=== PATIENT | male | born 1990 | race Two or more races ===

== ENCOUNTER 2016-09-16 08:57 | Emergency (ER) | payer MEDICAID, OTHER, SELFPAY ==
[2016-09-16 09:16] VITALS: BP 126/63
--- NOTE | 2016-09-16 09:39 | EDM.PDOC ---
ED HPI LOWER BACK PAIN/INJURY - General Chief Complaint: Back Pain or Injury Stated Complaint: HURT BACK Time Seen by Provider: 09/16/16 09:32 Source: Reports: Patient History Limitations: Reports: No limitations - History of Present Illness INITIAL COMMENTS - FREE TEXT/NARRATIVE: History of present illness: [This is a 26-year-old male that slipped and fell down the stairs yesterday basically been going down the stairs on his buttocks and comes in now with low back pain he has no pain we down his legs he has no prior injuries he did not go to work last night because of the pain and does not feel like he can work tonight he has used one 200 mg Advil for pain and nothing else.] Review of systems: As per history of present illness and below otherwise all systems reviewed and negative. Past medical history: As per history of present illness and as reviewed below otherwise noncontributory. Surgical history: As per history of present illness and as reviewed below otherwise noncontributory. Social history: No reported history of drug or alcohol abuse. Family history: As per history of present illness and as reviewed below otherwise noncontributory. Physical exam: HEENT: Atraumatic, normocephalic, pupils reactive, negative for conjunctival pallor or scleral icterus, mucous membranes moist, throat clear, neck supple, nontender, trachea midline. Lungs: Clear to auscultation, breath sounds equal bilaterally, chest nontender. Heart: S1S2, regular, negative for clicks, rubs, or JVD. Abdomen: Soft, nondistended, nontender. Negative for masses or hepatosplenomegaly. Negative for costovertebral tenderness. Pelvis: Stable nontender. Genitourinary: Deferred. Rectal: Deferred. Back: He does have some spasm paraspinally in the lumbar region on palpation it is tender straight leg raising is negative his DTRs are active he is able to sit and stand without difficulty. He has no midline tenderness Extremities: Atraumatic, negative for cords or calf pain. Neurovascular unremarkable. Neuro: Awake, alert, oriented. Cranial nerves II through XII unremarkable. Cerebellum unremarkable. Motor and sensory unremarkable throughout. Exam nonfocal. Diagnostics: [] Therapeutics: [] Impression: [Acute low back pain with spasm] Plan: [Will provide him with Flexeril 10 mg 1 by mouth 3 times a day when necessary # 30 with one refill and give him a work excuse and have him return to work tomorrow evening] Definitive disposition and diagnosis as appropriate pending reevaluation and review of above. 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 bilateral knee pain that comes and goes Psychiatric History: Reports: Depression, Suicidal ideation Social & Family History - Tobacco Use Smoking Status *Q: Current Every Day Smoker Years of Tobacco use: 15 Packs/Tins Daily: 0.5 - Caffeine Use Caffeine Use: Reports: Energy drinks Caffeine Use Comment: quit 2 months ago - Alcohol Use Days Per Week of Alcohol Use: 3 Number of Drinks Per Day: 3 Total Drinks Per Week: 9 - Recreational Drug Use Recreational Drug Use: Yes Recreational Drug Type: Reports: Cocaine ED ROS GENERAL - Review of Systems Review Of Systems: ROS reveals no pertinent complaints other than HPI. ED EXAM,LOWER BACK PAIN/INJURY - Physical Exam Exam: See Below Course - Vital Signs Last Recorded V/S: Last Vital Signs Temp 36.7 C 09/16/16 09:13 Pulse 77 09/16/16 09:13 Resp 14 09/16/16 09:13 BP 126/63 09/16/16 09:13 Pulse Ox 97 09/16/16 09:13 Departure - Departure Time of Disposition: 09:39 Disposition: Home, Self-Care 01 Condition: good Clinical Impression: Low back pain Qualifiers: Chronicity: acute Back pain laterality: unspecified Sciatica presence: unspecified whether sciatica present Qualified Code(s): M54.5 - Low back pain Forms: ED Department Discharge
== END 2016-09-16 10:02 | disposition home or self-care (01) ==
LOC: JP.ED 08:57
DX: M54.5 Low back pain (principal); F17.210 Nicotine dependence, cigarettes, uncomplicated; W10.9XXA Fall (on) (from) unspecified stairs and steps, initial encounter
CPT/HCPCS: 99283

== ENCOUNTER 2017-01-20 14:48 | Emergency (ER) | payer OTHER, SELFPAY ==
[2017-01-20 16:51] VITALS: BP 132/77
--- NOTE | 2017-01-20 17:21 | EDM.PDOC ---
ED HPI GENERAL MEDICAL PROBLEM - General Chief Complaint: General Stated Complaint: ELBOWS HURTING/COULDN'T WORK YESTERDAY FROM PAIN Time Seen by Provider: 01/20/17 17:15 Source of Information: Reports: Patient History Limitations: Reports: No Limitations - History of Present Illness INITIAL COMMENTS - FREE TEXT/NARRATIVE: Sheldon is an otherwise healthy 26 year old male who presents to the ED today with c/o bilateral elbow and knee pain. Patient reports that pain comes and goes and has been ongoing for the last several weeks. Patient was seen in clinic and was told to take Tylenol and Ibuprofen. Patient denies any fever/headache or trauma, did not go to work last night secondary to the pain. He does report that he does a lot of lifting at work which makes pain worse. 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 bilateral knee pain that comes and goes Psychiatric History: Reports: Depression, Suicidal Ideation Social & Family History - Tobacco Use Smoking Status *Q: Current Every Day Smoker Years of Tobacco use: 1 Packs/Tins Daily: 0.5 - Caffeine Use Caffeine Use: Reports: Energy Drinks Caffeine Use Comment: quit 2 months ago - Alcohol Use Days Per Week of Alcohol Use: 3 Number of Drinks Per Day: 3 Total Drinks Per Week: 9 - Recreational Drug Use Recreational Drug Use: Yes Recreational Drug Type: Reports: Cocaine ED ROS GENERAL - Review of Systems Review Of Systems: ROS reveals no pertinent complaints other than HPI. ED EXAM, GENERAL - Physical Exam Exam: See Below Exam Limited By: No Limitations General Appearance: Alert, WD/WN, No Apparent Distress Head: Atraumatic Respiratory/Chest: No Respiratory Distress, Lungs Clear Cardiovascular: Normal Peripheral Pulses, No Murmur, Bradycardia Back Exam: Normal Inspection Extremities: Normal Inspection, Normal Range of Motion, Normal Capillary Refill Neurological: Alert, Oriented Psychiatric: Normal Affect, Normal Mood Course - Vital Signs Last Recorded V/S: Last Vital Signs Temp 35.6 C 01/20/17 17:09 Pulse 56 L 01/20/17 17:09 Resp 16 01/20/17 17:09 BP 132/77 01/20/17 17:09 Pulse Ox 99 01/20/17 17:09 Sheldon is an otherwise healthy 26 year old male who presents to the ED today with c/o bilateral elbow and knee pain for the last several weeks. Please refer to HPI and focused exam. Patient on exam is well hydrated, he is non-toxic appearing, exam is rather unremarkable, he is minimally tender, there is no redness or swelling to indicate gout, infection or bursitis. Likely inflammatory with possible arthritic component vs. tendon involvement. Patient requesting blood work, this was done here including CBC, CMP, CRP and ESR, these are all relatively unremarkable. I instructed patient to take scheduled ibuprofen for the next 5 days to see if this is helpful. He should follow up with PCP next week. Reasons to return to return to the ED discussed, patient agreeable and discharged in stable condition. - Orders/Labs/Meds Labs: Laboratory Tests 01/20/17 01/20/17 Range/Units 17:28 17:28 WBC 10.6 (4.5-11.0) K/uL RBC 5.39 (4.30-5.90) M/uL Hgb 16.3 H (12.0-15.0) g/dL Hct 46.8 (40.0-54.0) % MCV 87 (80-98) fL MCH 30 (27-31) pg MCHC 35 (32-36) % Plt Count 294 (150-400) K/uL Neut % (Auto) 53 (36-66) % Lymph % (Auto) 35 (24-44) % [place] % (Auto) 8 H (2-6) % Eos % (Auto) 3 (2-4) % Baso % (Auto) 0 (0-1) % ESR 3 (0-20) mm/hr Sodium 139 L (140-148) mmol/L Potassium 4.0 (3.6-5.2) mmol/L Chloride 102 (100-108) mmol/L Carbon Dioxide 30 (21-32) mmol/L Anion Gap 11.0 (5.0-14.0) mmol/L BUN 20 H (7-18) mg/dL Creatinine 1.0 (0.8-1.3) mg/dL Est Cr Clr Drug Dosing 90.09 mL/min Estimated GFR (MDRD) > 60 (>60) Glucose 93 (74-106) mg/dL Calcium 9.3 (8.5-10.1) mg/dL Total Bilirubin 0.4 (0.2-1.0) mg/dL AST 19 (15-37) U/L ALT 40 (12-78) U/L Alkaline Phosphatase 135 H (46-116) U/L C-Reactive Protein 0.13 (0.0-0.3) mg/dL Total Protein 8.0 (6.4-8.2) g/dL Albumin 4.1 (3.4-5.0) g/dL Globulin 3.9 H (2.3-3.5) g/dL Albumin/Globulin Ratio 1.1 L (1.2-2.2) Departure - Departure Time of Disposition: 18:15 Disposition: Home, Self-Care 01 Condition: Good Clinical Impression: Joint pain Qualifiers: Joint pain location: elbow Laterality: bilateral Qualified Code(s): M25.521 - Pain in right elbow - Discharge Information Instructions: Joint Pain Referrals: PCP,None [Primary Care Provider] - Forms: ED Department Discharge Additional Instructions: Blood work is reassuring today, results are normal. Likely you have inflammation in your knees and elbows. I would recommend scheduled ibuprofen, 600 mg every 6 hours for the next 5 days , see if this is helpful I would like you to follow up with your primary care doctor next week.
== END 2017-01-20 18:07 | disposition home or self-care (01) ==
LOC: JP.ED 14:48
DX: M25.522 Pain in left elbow (principal); M25.521 Pain in right elbow; M25.562 Pain in left knee; M25.561 Pain in right knee; F17.210 Nicotine dependence, cigarettes, uncomplicated
CPT/HCPCS: 36415; 80053; 85025; 85651; 86140; 99283; 99284

== ENCOUNTER 2017-02-04 22:56 | Emergency (ER) | payer OTHER, SELFPAY ==
[2017-02-04 23:25] VITALS: BP 124/75
[2017-02-04] MEDS ORDERED: Ondansetron 4 MG Tab.DIS PO ONE (23:26)
[2017-02-04] MEDS ORDERED: Alum Hydrox/Mag Hydrox/Simeth 15 ML, Lidocaine 2% 15 ML PO ONE ×2 (23:37)
--- NOTE | 2017-02-04 23:44 | EDM.PDOC ---
ED HPI GENERAL MEDICAL PROBLEM - General Chief Complaint: Gastrointestinal Problem Stated Complaint: VOMITING Time Seen by Provider: 02/04/17 23:17 Source of Information: Reports: Patient History Limitations: Reports: No Limitations - History of Present Illness INITIAL COMMENTS - FREE TEXT/NARRATIVE: abdominal pain; this is a 26 year old male who earlier today ate a flaming hot burrito with [place]. Stomach was sore after eating, he went to work, checked in and vomited in the work office and once in Emergency waiting room. feeling a little better. Here to be check out for work. Onset: Today Duration: Hour(s): Location: Reports: Abdomen Quality: Reports: Burning Severity: Moderate Improves with: Reports: Other (vomiting) Worsens with: Reports: None Context: Reports: Other (eating hot spicy food) Associated Symptoms: Reports: Nausea/Vomiting LLQ Pain Score (Numeric/FACES): 9 - Related Data Allergies Allergy/AdvReac Type Severity Reaction Status Date / Time No Known Allergies Allergy Verified 04/19/16 16:32 Home Meds: Home Meds NK [No Known Home Meds] 04/19/16 [History] Past Medical History - Past Health History Medical/Surgical History: Denies Medical/Surgical History Other Genitourinary History: low 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 bilateral knee pain that comes and goes Psychiatric History: Reports: Depression, Suicidal Ideation Social & Family History - Tobacco Use Smoking Status *Q: Current Every Day Smoker Years of Tobacco use: 10 Packs/Tins Daily: 0.5 - Caffeine Use Caffeine Use: Reports: Coffee, Energy Drinks, Soda Caffeine Use Comment: quit 2 months ago - Alcohol Use Days Per Week of Alcohol Use: 3 Number of Drinks Per Day: 3 Total Drinks Per Week: 9 - Recreational Drug Use Recreational Drug Use: No Recreational Drug Type: Reports: Cocaine - Living Situation & Occupation Occupation: Employed ED ROS GENERAL - Review of Systems Review Of Systems: See Below Constitutional: Reports: Other (heart burn and stomach pain) HEENT: Reports: No Symptoms Respiratory: Reports: No Symptoms Cardiovascular: Reports: No Symptoms Endocrine: Reports: No Symptoms GI/Abdominal: Reports: Abdominal Pain, Nausea, Vomiting, Other (heart burn) : Reports: No Symptoms Musculoskeletal: Reports: No Symptoms Skin: Reports: No Symptoms Neurological: Reports: No Symptoms Psychiatric: Reports: No Symptoms Hematologic/Lymphatic: Reports: No Symptoms Immunologic: Reports: No Symptoms ED EXAM, GI/ABD - Physical Exam Exam: See Below Exam Limited By: No Limitations General Appearance: Alert, WD/WN, No Apparent Distress Ears: Normal External Exam, Normal Canal, Hearing Grossly Normal, Normal TMs Nose: Normal Inspection, Normal Mucosa, No Blood Throat/Mouth: Normal Inspection, Normal Lips, Normal Teeth, Normal Gums, Normal Oropharynx, Normal Voice, No Airway Compromise Head: Atraumatic, Normocephalic Neck: Normal Inspection, Supple, Non-Tender, Full Range of Motion Respiratory/Chest: No Respiratory Distress, Lungs Clear, Normal Breath Sounds, No Accessory Muscle Use, Chest Non-Tender Cardiovascular: Normal Peripheral Pulses, Regular Rate, Rhythm, No Edema, No Gallop, No JVD, No Murmur, No Rub GI/Abdominal Exam: Normal Bowel Sounds, Soft, Non-Tender, No Organomegaly, No Distention, No Abnormal Bruit, No Mass, Pelvis Stable (Male) Exam: Deferred, Other (patient declines any pain, dysuria or pelvis pain) Rectal (Males) Exam: Deferred Back Exam: Normal Inspection, Full Range of Motion Extremities: Normal Inspection, Normal Range of Motion, Non-Tender, No Pedal Edema, Normal Capillary Refill Neurological: Alert, Oriented, CN II-XII Intact, Normal Cognition, Normal Gait, Normal Reflexes, No Motor/Sensory Deficits Psychiatric: Normal Affect Skin Exam: Warm, Dry, Intact, Normal Color, No Rash Lymphatic: No Adenopathy Course - Vital Signs Last Recorded V/S: Last Vital Signs Temp 35.6 C 02/04/17 23:23 Pulse 72 02/04/17 23:23 Resp 15 02/04/17 23:23 BP 124/75 02/04/17 23:23 Pulse Ox 97 02/04/17 23:23 - Orders/Labs/Meds Meds: Medications Discontinued Medications Generic Name Dose Route Start Last Admin Trade Name Freq PRN Reason Stop Dose Admin Al Hydroxide/Mg Hydroxide 15 0 ml 02/04/17 23:37 02/04/17 23:43 ml/ Lidocaine HCl 15 ml PO 02/04/17 23:38 30 ml ONETIME ONE Administration Ondansetron HCl 4 mg 02/04/17 23:26 02/04/17 23:44 Zofran Odt PO 02/04/17 23:27 4 mg ONETIME ONE Administration Departure - Departure Time of Disposition: 23:50 Disposition: Home, Self-Care 01 Condition: Good Clinical Impression: Gastroenteritis - Discharge Information Instructions: Heartburn, Nausea and Vomiting, Adult, [id number] Referrals: Gallo Cantor PA-C [Primary Care Provider] - Forms: ED Department Discharge Care Plan Goals: Gastroenteritis -given anti-nausea medication; Zofran 4mg po, GI Cocktail -advise to take over the counter Prilosec or Zantac for heartburn -advise to avoid hot, spicy food -eat a bland diet for the next 24 hours then increase foods as tolerated. Return to Clinic, Urgent Care or ER if not improved or symptoms worsen. - Problem List & Annotations (1) Gastroenteritis SNOMED Code(s): 82353504 Code(s): K52.9 - NONINFECTIVE GASTROENTERITIS AND COLITIS, UNSPECIFIED Status: Acute Priority: Medium - Problem List Review Problem List Initiated/Reviewed/Updated: Yes - Assessment/Plan Plan: Gastroenteritis -given anti-nausea medication; Zofran 4mg po, GI Cocktail -advise to take over the counter Prilosec or Zantac for heartburn -advise to avoid hot, spicy food -eat a bland diet for the next 24 hours then increase foods as tolerated. Return to Clinic, Urgent Care or ER if not improved or symptoms worsen.
== END 2017-02-04 23:50 | disposition home or self-care (01) ==
LOC: JP.ED 22:56
DX: K52.9 Noninfective gastroenteritis and colitis, unspecified (principal); F17.210 Nicotine dependence, cigarettes, uncomplicated
CPT/HCPCS: 99284; A9270; 99282